=== PATIENT | female | born 1985 | race Caucasian/White ===

== ENCOUNTER 2021-09-18 22:57 | Emergency (ER) | payer SELFPAY ==
[~2021-09-18] VITALS: Ht 167.6 cm; Wt 75.0 kg
[~2021-09-18 22:57] MED LIST: IBUP-814 PO; NO HOME MEDS
[2021-09-18 23:24] VITALS: BP 131/90
== END 2021-09-18 23:26 ==
LOC: ER 22:58
DX: F10.129 Alcohol abuse with intoxication, unspecified (principal); Z79.899 Other long term (current) drug therapy; V89.2XXA Person injured in unspecified motor-vehicle accident, traffic, initial encounter; Y93.89 Activity, other specified; Y92.89 Other specified places as the place of occurrence of the external cause; Y99.8 Other external cause status; Y90.9 Presence of alcohol in blood, level not specified
CPT/HCPCS: 99283

== ENCOUNTER 2024-04-07 10:36 | Emergency (ER) | payer MEDICAID ==
[~2024-04-07] VITALS: Ht 170.2 cm; Wt 79.5 kg
[2024-04-07 10:39] VITALS: BP 113/71; PULSE 84; RESP 16; TEMP 97.8; O2SAT 99
== END 2024-04-07 12:21 | disposition left against medical advice (07) ==
LOC: ER 10:37
DX: R51.9 Headache, unspecified (principal); Z53.21 Procedure and treatment not carried out due to patient leaving prior to being seen by health care provider